=== PATIENT | male | born 1990 | race Caucasian/White ===

== ENCOUNTER 2017-10-30 04:20 | Emergency (ER) | payer OTHER ==
[~2017-10-30] VITALS: Ht 182.9 cm; Wt 91.2 kg
[~2017-10-30 04:20] MED LIST: ACET-8386 PO
[2017-10-30 04:27] VITALS: BP 105/76
--- NOTE | 2017-10-30 04:30 | NUR ---
PT JERALD DOHERTY. TAKEN TO BED 11
--- NOTE | 2017-10-30 04:33 | NUR ---
27Y M BIBA C/O ABDOMINAL PAIN ON AND OFF R/L UPPER QUADRANT WITH SOB X 1 DAY. NO MED HX. SX. GALL BLADDER REMOVAL X 1 MONTH AGO. PT AAOX4, BREATHING IS UNLABORED AND EVEN. PT AMBULATER TO ER BED 11 WITH STEADY GAIT.
--- NOTE | 2017-10-30 04:40 | NUR ---
Patient being evaluated by physician at bedside.
[2017-10-30 05:01] VITALS: BP 119/79
--- NOTE | 2017-10-30 05:01 | NUR ---
Patient discharged with v/s stable. Written and verbal after care instructions given and explained. Patient alert, oriented and verbalized understanding of instructions. Ambulatory with steady gait. All questions addressed prior to discharge. ID band removed. Patient advised to follow up with PMD. Rx of MOTRIN 800MG AND ZOFRAN 4MG given. Patient educated on indication of medication including possible reaction and side effects. Opportunity to ask questions provided and answered.
== END 2017-10-30 05:01 | disposition home or self-care (01) ==
LOC: MED 04:20
DX: G89.18 Other acute postprocedural pain (principal); R10.13 Epigastric pain; Z90.49 Acquired absence of other specified parts of digestive tract; F17.210 Nicotine dependence, cigarettes, uncomplicated
CPT/HCPCS: 99283

== ENCOUNTER 2017-10-30 21:52 | Emergency (ER) | payer OTHER ==
[~2017-10-30] VITALS: Ht 172.7 cm; Wt 90.7 kg
[2017-10-30 22:08] VITALS: BP 124/68
--- NOTE | 2017-10-30 22:21 | NUR ---
Patient discharged with v/s stable by Dr. Bran. Written and verbal after care instructions given and explained. Patient alert, oriented and verbalized understanding of instructions. Ambulatory with steady gait. All questions addressed prior to discharge. ID band removed. Patient advised to follow up with PMD. Rx of Zantac given. Patient educated on indication of medication including possible reaction and side effects. Opportunity to ask questions provided and answered. Addendum: 10/31/17 at 0018 by MALAIKA This time of DC is incorrect. Time of DC is 1178
--- NOTE | 2017-10-30 22:22 | NUR ---
PT TAKEN TO BED 4
--- NOTE | 2017-10-30 22:52 | NUR ---
Pt came to ED for c/o burning in stomach after eating spicy foods. Pt VSS. Pt denies chest pain, n/v, SOB, or dyspnea. A&Ox4. MD at bedside. Continue to monitor.
[2017-10-30 22:55] VITALS: BP 124/68
--- NOTE | 2017-10-30 23:21 | NUR ---
Patient discharged with v/s stable by Dr. Bran. Written and verbal after care instructions given and explained. Patient alert, oriented and verbalized understanding of instructions. Ambulatory with steady gait. All questions addressed prior to discharge. ID band removed. Patient advised to follow up with PMD. Rx of Zantac given. Patient educated on indication of medication including possible reaction and side effects. Opportunity to ask questions provided and answered.
== END 2017-10-30 23:21 | disposition home or self-care (01) ==
LOC: MED 21:52
DX: K52.9 Noninfective gastroenteritis and colitis, unspecified (principal); Z90.49 Acquired absence of other specified parts of digestive tract; Z79.899 Other long term (current) drug therapy
CPT/HCPCS: 99282

== ENCOUNTER 2017-11-26 21:26 | Emergency (ER) | payer OTHER ==
[~2017-11-26] VITALS: Ht 188 cm; Wt 94.1 kg
[2017-11-26 21:36] VITALS: BP 118/68
--- NOTE | 2017-11-27 00:54 | NUR ---
PATIENT LEFT WITHOUT BEING SEEN BY DR. DEL ROSARIO. NO FURTHER CARE PROVIDED FOR PATIENT.
== END 2017-11-27 00:54 | disposition left against medical advice (07) ==
LOC: MED 21:26
DX: R51 Headache (principal); Z53.21 Procedure and treatment not carried out due to patient leaving prior to being seen by health care provider

== ENCOUNTER 2019-06-14 10:53 | Emergency (ER) | payer OTHER ==
[~2019-06-14] VITALS: Ht 180.3 cm; Wt 101.6 kg
[2019-06-14 11:02] VITALS: BP 116/66
--- NOTE | 2019-06-14 11:08 | NUR ---
STREP CULTURE COLLECTED
--- NOTE | 2019-06-14 11:09 | NUR ---
PATIENT AMBULATED TO BED 5.
--- NOTE | 2019-06-14 11:14 | NUR ---
29M C/O THROAT PAIN X 3 DAYS WITH DIFFICULTY SWALLOWING, BODYACHES. STATES ABSECESS TO THE RIGHT UPPER GUMS A FEW DAYS PRIOR. C/O COUGH WITH SOME STREAKS OF BLOOD AND CLEAR THICK PHLEGM. STATES SUBJECTIVE FEVER LAST NIGHT. TEMP NOW 100.2 ORAL. DENIES N/V. STATES NONBLOODY DIARRHEA X 2 DAYS, NO ABD PAIN. NO CERVICAL LYMPH NODE TENDERNESS. ERYTHEMA TO TONSILLOPHARYNX. 1+ TONSILS. TOOK IBUPROFEN TODAY 3AM TO SOME RELIEF. LUNGS CTAB. HX--DENIES RX---NONE
--- NOTE | 2019-06-14 11:17 | NUR ---
STREP SWAB SAMPLE WALKED TO LAB.
--- NOTE | 2019-06-14 11:25 | NUR ---
DR. ARANGO EVALUATING PT AT BEDSIDE
[2019-06-14] MEDS ORDERED: CLINDAMYCIN 150 MG CAP PO ONE (11:50)
[2019-06-14] MEDS ORDERED: KETOROLAC 30 MG/ML VIAL IM ONE (11:50)
[2019-06-14] MEDS ORDERED: DEXAMETHASONE 4 MG/ML VIAL PO ONE (11:50)
--- NOTE | 2019-06-14 12:40 | NUR ---
Patient discharged with v/s stable. Written and verbal after care instructions given and explained. Patient alert, oriented and verbalized understanding of instructions. Ambulatory with steady gait. All questions addressed prior to discharge. ID band removed. Patient advised to follow up with PMD. Rx of ACETAMINOPHEN, MOTRIN, CLINDAMYCIN given. Patient educated on indication of medication including possible reaction and side effects. Opportunity to ask questions provided and answered.
[2019-06-14 12:42] VITALS: BP 121/69
== END 2019-06-14 12:40 | disposition home or self-care (01) ==
LOC: MED 10:53
DX: K04.7 Periapical abscess without sinus (principal); J02.9 Acute pharyngitis, unspecified; Z79.891 Long term (current) use of opiate analgesic
CPT/HCPCS: 87081; 96372; 99283; J1100; J1885

== ENCOUNTER 2019-09-04 19:49 | Emergency (ER) | payer OTHER ==
[~2019-09-04] VITALS: Ht 182.9 cm; Wt 101.8 kg
[2019-09-04 20:20] VITALS: BP 120/73
--- NOTE | 2019-09-04 20:33 | NUR ---
AMBULATES TO LOBBY WITH UPRIGHT STEADY GAIT. AWAITING AVAILABLE BED.
--- NOTE | 2019-09-04 21:42 | NUR ---
PT AMBULATED TO BED 09.
--- NOTE | 2019-09-04 21:43 | NUR ---
PT AMBULATED TO ER BED 9
--- NOTE | 2019-09-04 22:08 | NUR ---
DR. JARRETT BEDSIDE EVALUATING PT
[2019-09-04] MEDS ORDERED: ONDANSETRON 4 MG ODT PO ONE (22:25)
[2019-09-04] MEDS ORDERED: KETOROLAC 30 MG/ML VIAL IM ONE (22:25)
--- NOTE | 2019-09-04 22:40 | NUR ---
29/M PRESENTS WITH FAMILY/FRIEND, C/O 3/10 BL TEMPORAL HEADACHE, X2 DAYS. REPORTS VOMITING, REPORTS SEEING RED BLOOD IN VOMIT. NO ACTIVE VOMITING AT THIS TIME. DENIES LIGHT SENSITIVITY. PT AWAKE AND ALERT, PERRLA 3MM, GCS 15, RR EVEN AND UNLABORED. HX CHOLECYSTECTOMY. PT UNSURE OF HX OF GASTRIC ULCER. DENIES RX. OTC EXCEDRIN AT HOME, BUT VOMITED AFTER.
--- NOTE | 2019-09-04 22:51 | NUR ---
MEDICATED WITH 4 MG ODT ZOFRAN FOR N/V AND 30 MG IM TORADOL FOR 5/10 BHATIA. WILL REASSESS IN 15-20 MINS.
[2019-09-04 22:54] LABS: BASOPHILS % (AUTO) 0.5 % (0.0-2.0); EOSINOPHILS % (AUTO) 0.6 % (0.0-4.0); HEMATOCRIT 44.1 % (36-52); HEMOGLOBIN 14.8 g/dL (12.0-18.0); LYMPHOCYTES # (AUTO) 1.3 K/uL (2.0-11.5); LYMPHOCYTES % (AUTO) 22.4 % (20.5-51.1); MEAN CORPUSCULAR HEMOGLOBIN 30 pg (27-31); MEAN CORPUSCULAR HGB CONC 34 g/dL (33-37); MEAN CORPUSCULAR VOLUME 88.4 fL (80-94); MONOCYTES # (AUTO) 0.4 K/uL (0.8-1.0); MONOCYTES % (AUTO) 6.8 % (1.7-9.3); NEUTROPHILS % (AUTO) 69.7 % (42.2-75.2); PLATELET COUNT (AUTO) 158 K/uL (140-450); RED BLOOD CELL COUNT(AUTO) 4.98 MIL/uL (4.20-6.10); RED CELL DISTRIBUTION WIDTH 13.4 % (11.6-13.7); WHITE BLOOD COUNT (AUTO) 5.7 K/uL (4.8-10.8)
[2019-09-04 23:00] LABS: ANION GAP 10.6 (8-16); CARBON DIOXIDE 28.3 mmol/L (21-32); CREATININE 1.1 mg/dL (0.7-1.3); POTASSIUM 3.9 mmol/L (3.5-5.1)
[2019-09-04 23:05] LABS: PROTHROMBIN TIME 9.9 secs (10.8-13.4)
[2019-09-04 23:06] LABS: ALBUMIN 3.7 g/dL (3.4-5.0); TOTAL BILIRUBIN 0.3 mg/dL (0.0-1.0)
--- NOTE | 2019-09-04 23:55 | NUR ---
Patient discharged with v/s stable. Written and verbal after care instructions given and explained. Patient alert, oriented and verbalized understanding of instructions. Ambulatory with steady gait. All questions addressed prior to discharge. ID band removed. Patient advised to follow up with PMD. Rx of mylanta and tylenol given. Patient educated on indication of medication including possible reaction and side effects. Opportunity to ask questions provided and answered.
== END 2019-09-04 23:55 | disposition home or self-care (01) ==
LOC: MED 19:49
DX: R11.2 Nausea with vomiting, unspecified (principal); R51 Headache; R42 Dizziness and giddiness; Z90.49 Acquired absence of other specified parts of digestive tract; Z79.899 Other long term (current) drug therapy
CPT/HCPCS: 36415; 80053; 83690; 85025; 85610; 85730; 96372; 99283; J1885; Q0162

== ENCOUNTER 2019-09-16 09:29 | Emergency (ER) | payer OTHER ==
[~2019-09-16] VITALS: Ht 182.9 cm; Wt 100.7 kg
[2019-09-16 09:33] VITALS: BP 136/83
--- NOTE | 2019-09-16 09:39 | NUR ---
pt ambulated to ER bed 04
[2019-09-16] MEDS ORDERED: predniSONE 20 MG TAB PO ONE (09:55)
[2019-09-16] MEDS ORDERED: hydrOXYzine HCL 25 MG TAB PO ONE (09:55)
[2019-09-16] MEDS ORDERED: cefTRIAXone 1,000 MG in LIDOCAINE MPF 1% 2.1 ML IM ONE (09:55)
[2019-09-16] MEDS ORDERED: KETOROLAC 60 MG/2 ML VIAL IM ONE (09:55)
[2019-09-16] MEDS ORDERED: ALBUTEROL SULFATE/IPRATROPIU 3 ML SOL IH ONE (09:55)
[2019-09-16] MEDS ORDERED: cefTRIAXone 1,000 MG VIAL ONE (10:00)
[2019-09-16] MEDS ORDERED: LIDOCAINE MPF 1% 5 ML ONE (10:01)
--- NOTE | 2019-09-16 10:03 | NUR ---
C/O COUGH, SORE THROAT & FEVER X 3 DAYS. TEMP 99.4 AT THIS TIME. LUNGS DIMINISHED BILATERALLY. RR EVEN AND UNLABORED. REDNESS TO PTS THROAT NOTED. PT ADDS HEADACHE PAIN 10/10 WITH S/S. VS STABLE. PT ALERT AND AWAKE, AMBULATORY WITH STEADY GAIT. MED HX: GALL BLADDER REMOVAL
--- NOTE | 2019-09-16 10:04 | NUR ---
PO MEDICATIONS ADMINISTERED
--- NOTE | 2019-09-16 10:06 | NUR ---
RT AT BEDSIDE
--- NOTE | 2019-09-16 10:14 | NUR ---
IM MEDICATIONS ADMINISTERED. PT TOLERATED WELL.
[2019-09-16 10:20] VITALS: BP 130/76
--- NOTE | 2019-09-16 10:20 | NUR ---
nadr, pain 7/10 with headache at this time
--- NOTE | 2019-09-16 10:20 | NUR ---
Patient discharged with v/s stable. Written and verbal after care instructions given and explained regarding upper resp infection. Patient alert, oriented and verbalized understanding of instructions. Ambulatory with steady gait. All questions addressed prior to discharge. ID band removed. Patient advised to follow up with PMD. Rx of prednisone, promethazine, azithromycin given. Patient educated on indication of medication including possible reaction and side effects. Opportunity to ask questions provided and answered. instructed pt to take otc tylenol or motrin for fever
== END 2019-09-16 10:20 | disposition home or self-care (01) ==
LOC: MED 09:29
DX: J32.9 Chronic sinusitis, unspecified (principal); J06.9 Acute upper respiratory infection, unspecified; Z90.49 Acquired absence of other specified parts of digestive tract; Z79.891 Long term (current) use of opiate analgesic
CPT/HCPCS: 94640; 96372; 99283; J0696; J1885; J2001; J7512; J7620

== ENCOUNTER 2020-02-22 09:51 | Emergency (ER) | payer OTHER ==
[~2020-02-22] VITALS: Ht 182.9 cm; Wt 106.1 kg
[2020-02-22 09:55] VITALS: BP 182/73
--- NOTE | 2020-02-22 10:01 | NUR ---
C/O RIGHT UPPER TOOTHACHE X LAST NIGHT. STATES CONSTANT PAIN /. PT SAYS "I POPPED AN ABSCESS ON MY GUMS LAST NIGHT" BUT DENIES ANY ACTIVE BLEEDING NOW. ALSO DENIES N/V AND F/C. PT PRESENTS WITH POOR DENTITION, MISSING SEVERAL TEETH ON RIGHT UPPER SIDE AND CAVITIES PRESENT. AOX4 MED HX: CHOLECYSTECTOMY
--- NOTE | 2020-02-22 10:01 | NUR ---
PATIENT AMBULATED TO BED 11.
--- NOTE | 2020-02-22 10:09 | NUR ---
DR. BLACK EVALUATING PT AT BEDSIDE. REPORTED RECHECK BP OF 121/72 TO .
[2020-02-22] MEDS ORDERED: KETOROLAC 60 MG/2 ML VIAL IM ONE (10:15)
[2020-02-22] MEDS ORDERED: AMOXICILLIN 500 MG CAP PO ONE (10:15)
--- NOTE | 2020-02-22 10:30 | NUR ---
Patient discharged with v/s stable. Written and verbal after care instructions given and explained. Patient alert, oriented and verbalized understanding of instructions. Ambulatory with steady gait. All questions addressed prior to discharge. ID band removed. Patient advised to follow up with PMD. Rx of MOTRIN, TRAMADOL, AMOXICILLIN given. Patient educated on indication of medication including possible reaction and side effects. Opportunity to ask questions provided and answered. OKAY TO D/C PT AT PAIN 7/10 PER ERMD
[2020-02-22 10:31] VITALS: BP 121/72
== END 2020-02-22 10:30 | disposition home or self-care (01) ==
LOC: MED 09:51
DX: K04.7 Periapical abscess without sinus (principal); Z90.49 Acquired absence of other specified parts of digestive tract; Z79.899 Other long term (current) drug therapy
CPT/HCPCS: 96372; 99283; J1885

== ENCOUNTER 2020-03-01 20:54 | Emergency (ER) | payer OTHER ==
[~2020-03-01] VITALS: Ht 182.9 cm; Wt 105.2 kg
[2020-03-01 21:42] VITALS: BP 124/79
[2020-03-01 21:45] VITALS: BP 124/79
--- NOTE | 2020-03-01 21:52 | NUR ---
PT TAKEN TO CHAIR C
--- NOTE | 2020-03-01 21:55 | NUR ---
29Y/O MALE C/O LEFT EYE REDNESS X 1700 TODAY. PT STATES HE WAS CUTTING DOWN METAL AND THINKS METAL WENT INTO HIS EYE. PT STATES HE WAS WEARING GOGGLES AT THE TIME BUT IT FELT LIKE HE GOT SOMETHING IN HIS EYE. +EYE IRRITATED, +REDNESS, + ITCHINESS, +WATERY. RATES 5/10 PAIN AND DESCRIBES IT BURNING. DENIES ANY BLURRY VISON. NO DRIANGE OR BLOOD NOTED. PT SITTING IN GURNEY AT LOWEST POSITION, HOB ELEVATED. VISION ACUITY: RT: 20/40 LT: 20/25 BOTH: 20/20 NKA. PMH: GALLBLADDER REMOVAL 3-4YRS AGO.
--- NOTE | 2020-03-01 22:09 | NUR ---
Dr. Sheldon examining patient.
[2020-03-01] MEDS ORDERED: TETRACAINE HCL/PF 0.5% OPTH 4 ML BTL OP ONE (22:15)
[2020-03-01] MEDS ORDERED: FLUORESCEIN OPTH STRIP 1 MG OP ONE (22:15)
[2020-03-01] MEDS ORDERED: TOMOMETER 1 DEV DEV MC ONE (22:17)
--- NOTE | 2020-03-01 23:10 | NUR ---
Patient discharged with v/s stable. Written and verbal after care instructions given and explained. Patient alert, oriented and verbalized understanding of instructions. Ambulatory with steady gait. All questions addressed prior to discharge. ID band removed. Patient advised to follow up with PMD. Rx of POLYTRIM given. Patient educated on indication of medication including possible reaction and side effects. Opportunity to ask questions provided and answered.
== END 2020-03-01 23:10 | disposition home or self-care (01) ==
LOC: MED 20:54
DX: S05.01XA Injury of conjunctiva and corneal abrasion without foreign body, right eye, initial encounter (principal); Z79.899 Other long term (current) drug therapy; X58.XXXA Exposure to other specified factors, initial encounter; Y93.89 Activity, other specified; Y92.89 Other specified places as the place of occurrence of the external cause; Y99.8 Other external cause status
CPT/HCPCS: 90471; 90715; 99283

== ENCOUNTER 2020-07-30 21:10 | Emergency (ER) | payer OTHER ==
[~2020-07-30] VITALS: Ht 182.9 cm; Wt 111.1 kg
[2020-07-30 21:43] VITALS: BP 127/74
[2020-07-30] MEDS ORDERED: TETRACAINE HCL/PF 0.5% OPTH 4 ML BTL ONE (21:49)
[2020-07-30] MEDS ORDERED: FLUORESCEIN OPTH STRIP 1 MG ONE (21:49)
[2020-07-30 23:16] VITALS: BP 127/74
[2020-07-30] MEDS ORDERED: TETRACAINE HCL/PF 0.5% OPTH 4 ML BTL OP ONE (23:20)
[2020-07-30] MEDS ORDERED: FLUORESCEIN OPTH STRIP 1 MG OP ONE (23:20)
== END 2020-07-30 23:15 | disposition home or self-care (01) ==
LOC: MED 21:10
DX: S05.02XA Injury of conjunctiva and corneal abrasion without foreign body, left eye, initial encounter (principal); H57.12 Ocular pain, left eye; Z79.899 Other long term (current) drug therapy; X58.XXXA Exposure to other specified factors, initial encounter; Y93.89 Activity, other specified; Y92.89 Other specified places as the place of occurrence of the external cause; Y99.8 Other external cause status
CPT/HCPCS: 90471; 90715; 99283

== ENCOUNTER 2020-10-29 13:15 | Emergency (ER) | payer OTHER ==
[~2020-10-29] VITALS: Ht 182.9 cm; Wt 110.7 kg
[2020-10-29 13:18] VITALS: BP 132/80
[2020-10-29] MEDS ORDERED: KETOROLAC 60 MG/2 ML VIAL IM ONE (14:15)
[2020-10-29 14:23] VITALS: BP 132/80
== END 2020-10-29 14:23 | disposition home or self-care (01) ==
LOC: MED 13:15
DX: S39.012A Strain of muscle, fascia and tendon of lower back, initial encounter (principal); X50.9XXA Other and unspecified overexertion or strenuous movements or postures, initial encounter; Y93.89 Activity, other specified; Y92.89 Other specified places as the place of occurrence of the external cause; Y99.8 Other external cause status
CPT/HCPCS: 96372; 99283; J1885

== ENCOUNTER 2021-01-02 16:08 | Emergency (ER) | payer OTHER ==
[~2021-01-02] VITALS: Ht 182.9 cm; Wt 112.9 kg
[2021-01-02 16:15] VITALS: BP 123/83
--- NOTE | 2021-01-02 16:15 | NUR ---
PT AMBULATED TO BED 5.
--- NOTE | 2021-01-02 16:36 | NUR ---
Xray at bedside
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
--- NOTE | 2021-01-02 17:16 | NUR ---
Patient being evaluated by physician at bedside.
[2021-01-02] MEDS ORDERED: NAPR-54 PO (17:22)
[2021-01-02 17:32] VITALS: BP 123/83
== END 2021-01-02 17:32 | disposition home or self-care (01) ==
LOC: MED 16:08
DX: M77.9 Enthesopathy, unspecified (principal); Z79.899 Other long term (current) drug therapy; M79.644 Pain in right finger(s); X50.0XXA Overexertion from strenuous movement or load, initial encounter; Y93.89 Activity, other specified; Y92.89 Other specified places as the place of occurrence of the external cause; Y99.8 Other external cause status
CPT/HCPCS: 73140; 99283

== ENCOUNTER 2021-02-05 17:10 | Emergency (ER) | payer OTHER ==
[~2021-02-05] VITALS: Ht 182.9 cm; Wt 109.4 kg
[~2021-02-05 17:10] MED LIST changes: +NAPR-54 PO
[2021-02-05 17:14] VITALS: BP 139/71
--- NOTE | 2021-02-05 17:22 | NUR ---
PATIENT AMBULATED TO BED 8.
--- NOTE | 2021-02-05 17:26 | NUR ---
PATIENT PRESENTS TO ED WITH N/V, AND HEADACHE X 1 DAY. PT STATES IT STARTED TODAY AFTER DRINKING A LOT OF ALOCHOL LAST NIGHT. SKIN IS PINK/WARM/DRY; AAOX4 WITH EVEN AND STEADY GAIT; LUNGS CLEAR BL; HR EVEN AND REGULAR; PT DENIES ANY FEVER, CP, SOB, OR COUGH AT THIS TIME; PATIENT STATES PAIN OF 8/10 AT THIS TIME; VSS; PATIENT POSITIONED FOR COMFORT; HOB ELEVATED; BEDRAILS UP X1; BED DOWN. ER MD MADE AWARE OF PT STATUS. PMH: GALLBLADDER REMOVAL ROBBY
[2021-02-05] MEDS ORDERED: KETOROLAC 30 MG/ML VIAL IM ONE (17:30)
[2021-02-05] MEDS ORDERED: ONDANSETRON 4 MG/2 ML VIAL IVP ONE (17:30)
[2021-02-05] MEDS ORDERED: NACL 0.9% 1,000 ML IV ONE (17:30)
[2021-02-05] MEDS ORDERED: ONDA-24 SL (17:34)
--- NOTE | 2021-02-05 17:44 | NUR ---
20G IV PLACED TO LEFT AC WITH GOOD BLOOD RETURN.
[2021-02-05 18:59] VITALS: BP 139/71
== END 2021-02-05 18:58 | disposition home or self-care (01) ==
LOC: MED 17:10
DX: E86.0 Dehydration (principal); R11.2 Nausea with vomiting, unspecified; R51.9 Headache, unspecified; Z90.49 Acquired absence of other specified parts of digestive tract
CPT/HCPCS: 96361; 96372; 96374; 99284; J1885; J2405; J7030

== ENCOUNTER 2021-03-19 18:58 | Emergency (ER) | payer OTHER ==
[~2021-03-19] VITALS: Ht 182.9 cm; Wt 111.6 kg
[~2021-03-19 18:58] MED LIST changes: +ONDA-24 SL
[2021-03-19 19:06] VITALS: BP 126/60
--- NOTE | 2021-03-19 19:06 | NUR ---
TO BED AMBULATORY
--- NOTE | 2021-03-19 19:30 | NUR ---
DR. PATTERSON AT BEDSIDE EXAMINING PATIENT
[2021-03-19] MEDS ORDERED: CLIN-25 PO (19:34)
[2021-03-19] MEDS ORDERED: IBUP-2213 PO (19:34)
[2021-03-19] MEDS ORDERED: ACET-2619 PO (19:34)
--- NOTE | 2021-03-19 19:36 | NUR ---
30/M BIB SELF C/O ABSCESS ON HIS GUMS WHICH STARTED 3 DAYS AGO. PT VERBALIZED 5/10 NON-RADIATING PAIN. NO BLEEDING NOTED. PT DENIES ANY FEVER, NAUSEA OR VOMITING. DENIES PMH NKDA
[2021-03-19 19:49] VITALS: BP 126/60
--- NOTE | 2021-03-19 19:49 | NUR ---
Patient discharged with v/s stable. Written and verbal after care instructions given and explained. Patient alert, oriented and verbalized understanding of instructions. Ambulatory with steady gait. All questions addressed prior to discharge. ID band removed. Patient advised to follow up with PMD. Rx of CLINDAMYCIN, TYLENOL, IBUPROFEN given. Patient educated on indication of medication including possible reaction and side effects. Opportunity to ask questions provided and answered.
== END 2021-03-19 19:49 | disposition home or self-care (01) ==
LOC: MED 18:58
DX: K04.7 Periapical abscess without sinus (principal); Z90.49 Acquired absence of other specified parts of digestive tract
CPT/HCPCS: 99283

== ENCOUNTER 2021-05-29 06:24 | Emergency (ER) | payer OTHER ==
[~2021-05-29] VITALS: Ht 182.9 cm; Wt 106.8 kg
[~2021-05-29 06:24] MED LIST changes: +ACET-2619 PO; +CLIN-25 PO; +IBUP-2213 PO
[2021-05-29 06:30] VITALS: BP 129/88
--- NOTE | 2021-05-29 06:30 | NUR ---
TO BED AMBULATORY
--- NOTE | 2021-05-29 06:53 | NUR ---
X-Ray at bedside.
[2021-05-29] MEDS ORDERED: BACITRACIN OINT 500 UNITS/GM PKT TP ONE (07:55)
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
--- NOTE | 2021-05-29 08:22 | NUR ---
PATIENT'S WOUND ON RIGHT ELBOW WAS CLEANED WITH NORMAL SALINE AND BETADINE. WOUND WAS THEN BANDAGED WITH NON-ADHERENT DRESSING, BACITRACIN, GAUZE ROLL AND KOFLEX.
[2021-05-29] MEDS ORDERED: NAPR-54 PO (08:33)
[2021-05-29] MEDS ORDERED: KETOROLAC 30 MG/ML VIAL IM ONE (08:35)
--- NOTE | 2021-05-29 08:37 | NUR ---
PATIENT'S RIGHT KNEE WAS WRAPPED WITH NAHEED WRAP
[2021-05-29 08:57] VITALS: BP 129/88
== END 2021-05-29 08:57 | disposition home or self-care (01) ==
LOC: MED 06:24
DX: S83.91XA Sprain of unspecified site of right knee, initial encounter (principal); S80.12XA Contusion of left lower leg, initial encounter; S50.311A Abrasion of right elbow, initial encounter; Z79.899 Other long term (current) drug therapy; W20.8XXA Other cause of strike by thrown, projected or falling object, initial encounter; Y93.89 Activity, other specified; Y92.89 Other specified places as the place of occurrence of the external cause; Y99.8 Other external cause status
CPT/HCPCS: 73562; 96372; 99283; J1885; Q0092

== ENCOUNTER 2021-10-20 05:47 | Emergency (ER) | payer OTHER ==
[~2021-10-20] VITALS: Ht 182.9 cm; Wt 99.8 kg
[~2021-10-20 05:47] MED LIST changes: +ONDA-188 SL; -ONDA-24 SL
[2021-10-20 06:10] VITALS: BP 131/65
--- NOTE | 2021-10-20 06:14 | NUR ---
patient w/c assisted to the lobby
--- NOTE | 2021-10-20 07:15 | NUR ---
C/O low back pain started yesterday. denies falling. took nyquil for medication. denies n/v/d. 07/03- crushing. pmh: gall bladder removal emili
[2021-10-20] MEDS ORDERED: KETOROLAC 60 MG/2 ML VIAL IM ONE (07:20)
[2021-10-20] MEDS ORDERED: PRED20TA5 PO (07:22)
[2021-10-20] MEDS ORDERED: LID5T TP (07:22)
[2021-10-20] MEDS ORDERED: CYCL-654 PO (07:22)
[2021-10-20] MEDS ORDERED: NAPR-54 PO (07:22)
--- NOTE | 2021-10-20 08:02 | NUR ---
Patient discharged with v/s stable. Written and verbal after care instructions given and explained. Patient alert, oriented and verbalized understanding of instructions. Ambulatory with steady gait. All questions addressed prior to discharge. ID band removed. Patient advised to follow up with PMD. Rx of CYCLOBENZAPRINE,LIDODERM, NAPROSYN, PREDNISONE given. Patient educated on indication of medication including possible reaction and side effects. Opportunity to ask questions provided and answered.
[2021-10-20 08:03] VITALS: BP 142/53
== END 2021-10-20 08:02 | disposition home or self-care (01) ==
LOC: MED 05:47
DX: S39.012A Strain of muscle, fascia and tendon of lower back, initial encounter (principal); Z79.899 Other long term (current) drug therapy; X58.XXXA Exposure to other specified factors, initial encounter; Y93.89 Activity, other specified; Y92.89 Other specified places as the place of occurrence of the external cause; Y99.8 Other external cause status
CPT/HCPCS: 96372; 99283; J1885

== ENCOUNTER 2022-06-25 04:33 | Emergency (ER) | payer OTHER ==
[~2022-06-25] VITALS: Ht 182.9 cm; Wt 108.4 kg
[~2022-06-25 04:33] MED LIST changes: +CYCL-654 PO; +LID5T TP; +PRED20TA5 PO
[2022-06-25 04:40] VITALS: BP 127/75
--- NOTE | 2022-06-25 04:47 | NUR ---
Patient ambulated to bed 4.
--- NOTE | 2022-06-25 04:55 | NUR ---
Dr. Bran examining patient.
[2022-06-25] MEDS ORDERED: KETOROLAC 60 MG/2 ML VIAL IM ONE (05:05)
[2022-06-25] MEDS ORDERED: NAPR-54 PO (06:11)
[2022-06-25 06:19] VITALS: BP 122/75
--- NOTE | 2022-06-25 06:19 | NUR ---
Patient discharged with v/s stable. Written and verbal after care instructions given and explained by Dr. Bran. Patient alert, oriented and verbalized understanding of instructions. Ambulatory with steady gait. All questions addressed prior to discharge. ID band removed. Patient advised to follow up with PMD. Rx of Naproxen given. Patient educated on indication of medication including possible reaction and side effects. Opportunity to ask questions provided and answered.
== END 2022-06-25 06:19 | disposition home or self-care (01) ==
LOC: MED 04:33
DX: M43.6 Torticollis (principal)
CPT/HCPCS: 96372; 99283; J1885

== ENCOUNTER 2022-06-29 20:25 | Emergency (ER) | payer OTHER ==
--- NOTE | 2022-06-29 22:15 | NUR ---
CALLED PT TO TRIAGE, NO ANSWER
--- NOTE | 2022-06-29 22:31 | NUR ---
CALLED PT TO TRIAGE, IN LOBBY AND OUTSIDE. NO ANSWER. PT LWBS
== END 2022-06-29 22:15 | disposition left against medical advice (07) ==
LOC: MED 20:25
DX: M79.669 Pain in unspecified lower leg (principal); Z53.21 Procedure and treatment not carried out due to patient leaving prior to being seen by health care provider

== ENCOUNTER 2023-06-30 19:20 | Emergency (ER) | payer OTHER ==
[~2023-06-30] VITALS: Ht 182.9 cm; Wt 108.9 kg
[~2023-06-30 19:20] MED LIST changes: -ACET-8386 PO; +ACET-8905 PO; +CYCL-711 PO
[2023-06-30 19:23] VITALS: BP 139/76; PULSE 76; RESP 16; TEMP 97.4; O2SAT 97
[2023-06-30] MEDS ORDERED: ACETAMINOPHEN 325 MG TAB PO ONE (19:40)
[2023-06-30] MEDS ORDERED: MECLIZINE 25 MG TAB PO ONE (19:40)
[2023-06-30] MEDS ORDERED: KETOROLAC 30 MG/ML VIAL IM ONE (19:40)
[2023-06-30 20:38] LABS: BASOPHILS % (AUTO) 0.6 % (0.0-2.0); EOSINOPHILS # (AUTO) 0.1 K/uL (0-0.4); EOSINOPHILS % (AUTO) 1.8 % (0.0-4.0); HEMATOCRIT 42.1 % (36-52); HEMOGLOBIN 14.7 g/dL (12.0-18.0); LYMPHOCYTES # (AUTO) 1.6 K/uL (2.0-11.5); LYMPHOCYTES % (AUTO) 42.3 % (20.5-51.1); MEAN CORPUSCULAR HEMOGLOBIN 31 pg (27-31); MEAN CORPUSCULAR HGB CONC 35 g/dL (33-37); MEAN CORPUSCULAR VOLUME 88.9 fL (80-94); MONOCYTES # (AUTO) 0.6 K/uL (0.8-1.0); MONOCYTES % (AUTO) 16.8 % (1.7-9.3); NEUTROPHILS # (AUTO) 1.5 K/uL (1.8-7.7); NEUTROPHILS % (AUTO) 38.5 % (42.2-75.2); PLATELET COUNT (AUTO) 199 K/uL (140-450); RED BLOOD CELL COUNT(AUTO) 4.74 MIL/uL (4.20-6.10); RED CELL DISTRIBUTION WIDTH 13.3 % (11.6-13.7); WHITE BLOOD COUNT (AUTO) 3.8 K/uL (4.8-10.8)
[2023-06-30 20:44] LABS: FLU A ANTIGEN negative (NEGATIVE); FLU B ANTIGEN NEGATIVE (NEGATIVE)
[2023-06-30 20:59] LABS: ALBUMIN 3.6 g/dL (3.4-5.0); ANION GAP 15.1 (8-16); CALCIUM 8.7 mg/dL (8.5-10.1); CARBON DIOXIDE 24.4 mmol/L (21-32); POTASSIUM 3.5 mmol/L (3.5-5.1); TOTAL BILIRUBIN 0.4 mg/dL (0.0-1.0); TOTAL PROTEIN, SERUM 7.4 g/dL (6.4-8.2)
[2023-06-30] MEDS ORDERED: MECL-303 PO (21:09)
[2023-06-30] MEDS ORDERED: IBUP-2213 PO (21:09)
[2023-06-30 21:31] VITALS: O2SAT 97
== END 2023-06-30 21:15 | disposition home or self-care (01) ==
LOC: MED 19:20
DX: B34.9 Viral infection, unspecified (principal); R42 Dizziness and giddiness; Z20.822 Contact with and (suspected) exposure to COVID-19; Z79.899 Other long term (current) drug therapy; Z79.1 Long term (current) use of non-steroidal anti-inflammatories (NSAID); Z79.2 Long term (current) use of antibiotics
CPT/HCPCS: 36415; 80053; 85025; 87426; 87804; 93005; 96372; 99284; J1885; J8597

== ENCOUNTER 2023-08-17 18:12 | Emergency (ER) | payer OTHER ==
[~2023-08-17] VITALS: Ht 182.9 cm; Wt 108.9 kg
[~2023-08-17 18:12] MED LIST changes: +MECL-303 PO
[2023-08-17 18:50] VITALS: BP 117/77; PULSE 96; RESP 15; TEMP 100.4; O2SAT 96
[2023-08-17] MEDS ORDERED: BENZ100C6 PO (19:24)
[2023-08-17] MEDS ORDERED: BENZ-300 PO (19:24)
[2023-08-17] MEDS ORDERED: ACET-10509 PO (19:25)
[2023-08-17 21:03] LABS: FLU A ANTIGEN negative (NEGATIVE); FLU B ANTIGEN NEGATIVE (NEGATIVE)
== END 2023-08-17 20:48 | disposition left against medical advice (07) ==
LOC: MED 18:12
DX: J06.9 Acute upper respiratory infection, unspecified (principal); Z20.822 Contact with and (suspected) exposure to COVID-19; Z79.899 Other long term (current) drug therapy
CPT/HCPCS: 99283

== ENCOUNTER 2023-12-04 21:05 | Emergency (ER) | payer OTHER ==
[~2023-12-04] VITALS: Ht 182.9 cm; Wt 108.9 kg
[~2023-12-04 21:05] MED LIST changes: +ACET-10509 PO; +BENZ-300 PO; +BENZ100C6 PO
[2023-12-04 21:48] VITALS: BP 124/65; PULSE 93; RESP 20; TEMP 98.9; O2SAT 94
== END 2023-12-05 00:11 | disposition home or self-care (01) ==
LOC: MED 21:05
DX: M25.531 Pain in right wrist (principal); Z79.899 Other long term (current) drug therapy
CPT/HCPCS: 73110; 99283

== ENCOUNTER 2024-03-29 18:47 | Emergency (ER) | payer OTHER ==
[~2024-03-29] VITALS: Ht 182.9 cm; Wt 118.4 kg
[~2024-03-29 18:47] MED LIST changes: +NAPR-337 PO; -NAPR-54 PO
[2024-03-29 18:50] VITALS: BP 121/81; PULSE 94; RESP 18; TEMP 97.8; O2SAT 96
[2024-03-29] MEDS ORDERED: IBUP-2213 PO (19:34)
[2024-03-29 19:41] VITALS: BP 121/81; PULSE 94; RESP 18; TEMP 97.8; O2SAT 96
== END 2024-03-29 19:41 | disposition home or self-care (01) ==
LOC: MED 18:47
DX: M26.601 Right temporomandibular joint disorder, unspecified (principal); Z90.49 Acquired absence of other specified parts of digestive tract; Z79.899 Other long term (current) drug therapy
CPT/HCPCS: 99282